=== PATIENT | female | born 1985 | race Caucasian/White ===

== ENCOUNTER 2016-12-14 07:25 | Emergency (ER) | payer SELFPAY ==
[2016-12-14] MEDS ORDERED: PROPOFOL INJ 200 MG/20 ML VIAL IV ONE (07:37)
--- NOTE | 2016-12-14 07:37 | ER Document Report ---
ED General - General Chief Complaint: Shoulder Pain Stated Complaint: RIGHT SHOULD PAIN Time Seen by Provider: 12/14/16 07:34 Mode of Arrival: Ambulatory Information source: Patient Notes: 31 yr old female hx of previous shoulder dislocations presents with r shoudler dislocation as of this morning. pt states she may have spasmed i nher sleep, was suppposed ot have surgery but has not had a dislocation in 2 yrs, admits to tingling i nthe fingers. TRAVEL OUTSIDE OF THE [place] IN LAST 30 DAYS: No - HPI Onset: Just prior to arrival Onset/Duration: Sudden Quality of pain: Achy Severity: Mild Pain Level: 2 Associated symptoms: Body/muscle aches Exacerbated by: Movement Relieved by: Denies Similar symptoms previously: Yes Recently seen / treated by doctor: Yes - Related Data Allergies/Adverse Reactions: penicillin V potassium [From Posterous] Allergy (Verified 12/14/16 07:31) unk Past Medical History - Social History Smoking Status: Never Smoker Cigarette use (# per day): No Chew tobacco use (# tins/day): No Smoking Education Provided: No Family History: Reviewed & Not Pertinent Renal/ Medical History: Denies: Hx Peritoneal Dialysis Psychiatric Medical History: Reports: Hx Depression Past Surgical History: Reports: Hx Section - x1 - Immunizations Hx Diphtheria, Pertussis, Tetanus Vaccination: Yes Review of Systems - Review of Systems Notes: REVIEW OF SYSTEMS: CONSTITUTIONAL : Denies fever, chills, or sweats. Denies recent illness. EENT: Denies eye, ear, throat, or mouth pain or symptoms. Denies nasal or sinus congestion or discharge. Denies throat, tongue, or mouth swelling or difficulty swallowing. CARDIOVASCULAR: Denies chest pain. Denies palpitations or racing or irregular heart beat. Denies ankle edema. RESPIRATORY: Denies cough, cold, or chest congestion. Denies shortness of breath, difficulty breathing, or wheezing. GASTROINTESTINAL: Denies abdominal pain or distention. Denies nausea, vomiting , or diarrhea. Denies blood in vomitus, stools, or per rectum. Denies black, tarry stools. Denies constipation. GENITOURINARY: Denies difficulty urinating, painful urination, burning, frequency, blood in urine, or discharge. FEMALE GENITOURINARY: Denies vaginal bleeding, heavy or abnormal periods, irregular periods. Denies vaginal discharge or odor. MUSCULOSKELETAL: Admits to right shoulder pain SKIN: Denies rash, lesions or sores. HEMATOLOGIC : Denies easy bruising or bleeding. LYMPHATIC: Denies swollen, enlarged glands. NEUROLOGICAL: Denies confusion or altered mental status. Denies passing out or loss of consciousness. Denies dizziness or lightheadedness. Denies headache. Denies weakness or paralysis or loss of use of either side. Denies problems with gait or speech. Denies sensory loss, numbness, or tingling. Denies seizures. PSYCHIATRIC: Denies anxiety or stress. Denies depression, suicidal ideation, or homicidal ideation. ALL OTHER SYSTEMS REVIEWED AND NEGATIVE. PHYSICAL EXAMINATION: GENERAL: Well-appearing, well-nourished and in no acute distress. HEAD: Atraumatic, normocephalic. EYES: Pupils equal round and reactive to light, extraocular movements intact, conjunctiva are normal. ENT: Nares patent, oropharynx clear without exudates. Moist mucous membranes. NECK: Normal range of motion, supple without lymphadenopathy LUNGS: Breath sounds clear to auscultation bilaterally and equal. No wheezes rales or rhonchi. HEART: Regular rate and rhythm without murmurs ABDOMEN: Soft, nontender, nondistended abdomen. No guarding, no rebound. No masses appreciated. Female : deferred Musculoskeletal: obvious anterior dislocation of the right shoulder, sensation in tact, pt has good strewnght and pulses NEUROLOGICAL: Cranial nerves grossly intact. Normal speech, normal gait. Normal sensory, motor exams PSYCH: Normal mood, normal affect. SKIN: Warm, Dry, normal turgor, no rashes or lesions noted. Dictation was performed using [employer] voice recognition software Physical Exam - Vital signs Vitals: Temp Pulse Resp BP Pulse Ox 98.3 F 56 L 16 129/87 H 95 12/14/16 07:30 12/14/16 07:30 12/14/16 07:30 12/14/16 07:30 12/14/16 07:30 Course - Re-evaluation Re-evalutation: 12/14/16 08:28 X-rays consistent with a shoulder dislocation conscious sedation will be performed at patient's request 12/14/16 08:58 Shoulder reduced with no complication After performing a Medical Screening Examination, I estimate there is LOW risk for INTRACRANIAL HEMORRHAGE, UNSTABLE SPINE FRACTURE, CENTRAL CORD SYNDROME, CAUDA EQUINA, THORACIC AORTIC DISSECTION, PNEUMOTHORAX, PERFORATED BOWEL, RUPTURED ABDOMINAL AORTIC ANEURYSM, ACUTE TENDON RUPTURE, COMPARTMENT SYNDROME, or OPEN FRACTURE, thus I consider the discharge disposition reasonable. Also, there is no evidence or peritonitis, sepsis, or toxicity. I have reevaluated this patient multiple times and no significant life threatening changes are noted. The patient and I have discussed the diagnosis and risks, and we agree with discharging home to follow-up with their primary doctor with the understanding that symptoms and presentations can change. We also discussed returning to the Emergency Department immediately if new or worsening symptoms occur. We have discussed the symptoms which are most concerning (e.g., bloody stool, fever, changing or worsening pain, vomiting) that necessitate immediate return. - Vital Signs Vital signs: Temp Pulse Resp BP Pulse Ox 98.3 F 124 H 20 129/87 H 100 12/14/16 07:30 12/14/16 08:40 12/14/16 08:40 12/14/16 07:30 12/14/16 08:40 - Diagnostic Test Radiology reviewed: Image reviewed, Reports reviewed Procedures - Conscious Sedation Conscious sedation Time started: 08:42 Time completed: 08:49 Consent obtained: Yes Indication: shoudler reduction Pt with a mild systemic disease.: P2. - ASA Classification. Airway Evaluation: Normal anatomy Mallampati Classification: Class 1 Used during procedure: Suction available, IV access obtained, Pulse ox on pt., quality assurance monitor body on pt. Medications administered: Diprivan Reversal agents: None I personally performed/intraservice time: Sedation, Procedure, 30 min or less Complications: No - Immobilization Right Shoulder Time completed: 08:51 Pre-Proc Neuro Vasc Exam: Normal Immobilizer type: Shoulder immobilizer Performed by: Provider assisted, PCT Post-Proc Neuro Vasc Exam: Normal Alignment checked and good: Yes - Joint Reduction/Fracture Care Right Shoulder Time completed: 08:49 Consent obtained: Yes Conscious sedation: Yes Pre-procedure NV exam: Yes Fracture: Closed Post-procedure NV exam: Yes Post-reduction x-ray: Joint reduced Reduction attempts: 1 Complications: No Discharge - Discharge Clinical Impression: shoulder reduction Shoulder dislocation Qualifiers: Encounter type: initial encounter Laterality: right Qualified Code(s): S43.004A - Unspecified dislocation of right shoulder joint, initial encounter Condition: Stable Disposition: HOME, SELF-CARE Instructions: Shoulder Dislocation ([facility]), Sling as Treatment ([facility]) Prescriptions: Hydrocodone/Acetaminophen [[place] 5-325 mg Tablet] 1 tab PO Q6 #10 tablet Referrals: PRISCILA VAZQUEZ DO [ACTIVE STAFF] - Follow up tomorrow
--- NOTE | 2016-12-14 07:59 | RADIOLOGY REPORT (SQ) ---
EXAM DESCRIPTION: SHOULDER RIGHT 2 OR MORE VIEWS COMPLETED DATE/TIME: 12/14/2016 7:51 am REASON FOR STUDY: hx dislocations COMPARISON: 10/29/2016. NUMBER OF VIEWS: Three views. TECHNIQUE: Internal rotation, external rotation, and Y view images acquired of the right shoulder. LIMITATIONS: None. FINDINGS: MINERALIZATION: Normal. BONES: No acute fracture or dislocation. No worrisome bone lesions. JOINTS: Anterior dislocation of the right shoulder, glenohumeral joint. VISUALIZED LUNGS AND RIBS: No pneumothorax. No rib fracture. SOFT TISSUES: No radiopaque foreign body. OTHER: No other significant finding. IMPRESSION: Right anterior shoulder dislocation. TECHNICAL DOCUMENTATION: JOB ID: [id number] [employer]- All Rights Reserved
--- NOTE | 2016-12-14 09:10 | RADIOLOGY REPORT (SQ) ---
EXAM DESCRIPTION: SHOULDER RIGHT 1 VIEW COMPLETED DATE/TIME: 12/14/2016 8:59 am REASON FOR STUDY: er 17 post reduction COMPARISON: None. NUMBER OF VIEWS: One view. TECHNIQUE: AP images acquired of the right shoulder. LIMITATIONS: None. FINDINGS: Humeral head overlies the glenoid. No fracture identified. IMPRESSION: Successful reduction. TECHNICAL DOCUMENTATION: JOB ID: [id number] [employer]- All Rights Reserved
[2016-12-14 10:06] VITALS: BP 123/82
== END 2016-12-14 10:10 | disposition home or self-care (01) ==
LOC: ER 07:25
PROC: 0RSJXZZ Reposition Right Shoulder Joint, External Approach (ICD-10-PCS; principal; 2016-12-14)
DX: S43.004A Unspecified dislocation of right shoulder joint, initial encounter (principal); M25.511 Pain in right shoulder; X58.XXXA Exposure to other specified factors, initial encounter
CPT/HCPCS: 99283; 99152; 73020; 73030; 23650; L3650; J2704

== ENCOUNTER 2017-05-22 15:37 | Emergency (ER) | payer SELFPAY ==
[2017-05-22 15:44] VITALS: BP 150/88
--- NOTE | 2017-05-22 16:05 | ER Document Report ---
ED Medical Screen (RME) - General Chief Complaint: Abdominal Pain Stated Complaint: ABDOMINAL PAIN Time Seen by Provider: 05/22/17 16:05 TRAVEL OUTSIDE OF THE [place] IN LAST 30 DAYS: No - HPI Patient complains to provider of: Abdominal pain 8/10 sharp in nature without radiation. Notes: 05/22/17 16:13 Patient with history of hepatitis C and worsening liver function presents with increasing ascites. Patient diagnosed a few months ago with hep C. Following up with [facility]. Patient had an episode of this in the past was given diuretics and diuresed a great deal of urine off. and felyt imporved. Spoke with her family doctor today and they told her to come get evaluated. - Related Data Allergies/Adverse Reactions: penicillin V potassium [From Michelle Rasmussen] Allergy (Verified 05/22/17 15:38) unk Home Medications: Current Home Medications Emtricitabine/Tenofov Alafenam [Descovy 200-25 mg Tablet] 1 tab PO DAILY [History] Propranolol HCl [Inderal Xl] 80 mg PO DAILY 05/22/17 [History] Raltegravir Potassium [Isentress Hd] 2 tab PO DAILY 05/22/17 [History] Spironolactone [Spironolactone] 2 tab PO BID 05/22/17 [History] Past Medical History - Social History Chew tobacco use (# tins/day): No Frequency of alcohol use: None Drug Abuse: None Renal/ Medical History: Denies: Hx Peritoneal Dialysis Psychiatric Medical History: Reports: Hx Depression Past Surgical History: Reports: Hx Section - x1 - Immunizations Hx Diphtheria, Pertussis, Tetanus Vaccination: Yes Review of Systems - Review of Systems Gastrointestinal: Abdomen distended, Abdominal pain Physical Exam - Vital signs Vitals: Temp Pulse Resp BP Pulse Ox 98.6 F 110 H 16 150/88 H 100 05/22/17 15:43 05/22/17 15:43 05/22/17 15:43 05/22/17 15:43 05/22/17 15:43 Course - Vital Signs Vital signs: Temp Pulse Resp BP Pulse Ox 98.6 F 110 H 16 150/88 H 100 05/22/17 15:43 05/22/17 15:43 05/22/17 15:43 05/22/17 15:43 05/22/17 15:43
[2017-05-22 16:35] LABS: ABSOLUTE LYMPHOCYTES (AUTO) 0.6 10^3/uL (0.5-4.7); ABSOLUTE MONOCYTES (AUTO) 0.4 10^3/uL (0.1-1.4); ABSOLUTE NEUT (AUTO) 3.1 10^3/uL (1.7-8.2); BASOPHILS % (AUTO) 0.6 % (0-2); EOSINOPHILS % (AUTO) 0.9 % (0-6); HEMATOCRIT 36.6 % (36.0-47.0); HEMOGLOBIN 12.4 g/dL (12.0-15.5); LYMPHOCYTES % (AUTO) 14.7 % (13-45); MEAN CORPUSCULAR HEMOGLOBIN 34.8 pg (27.0-33.4); MEAN CORPUSCULAR VOLUME 103 fl (80-97); MONOCYTES % (AUTO) 10.6 % (3-13); RED BLOOD COUNT 3.57 10^6/uL (3.72-5.28); RED CELL DISTRIBUTION WIDTH 17.3 % (11.5-14.0); SEGMENTED NEUTROPHILS % (AUTO) 73.2 % (42-78); TOTAL CELLS COUNTED % (AUTO) 100 %; WHITE BLOOD COUNT 4.2 10^3/uL (4.0-10.5)
[2017-05-22 16:39] LABS: APPEARANCE,URINE SLIGHTLY-CLOUDY; BILIRUBIN,URINE MODERATE (NEGATIVE); COLOR,URINE AMBER; GLUCOSE, URINE NEGATIVE (NEGATIVE); KETONES,URINE NEGATIVE (NEGATIVE); LEUKOCYTE ESTERASE,URINE NEGATIVE (NEGATIVE); NITRITE,URINE NEGATIVE (NEGATIVE); PROTEIN,URINE 30 mg/dL (NEGATIVE); URINE SPECIFIC GRAVITY 1.019
[2017-05-22 16:46] LABS: INTERNATIONAL RATION (INR) 1.59; PROTHROMBIN TIME 19.9 SEC (11.4-15.4)
[2017-05-22 16:47] LABS: PARTIAL THROMBOPLASTIN TIME 39.6 SEC (23.5-35.8)
[2017-05-22 16:50] LABS: PLATELET COUNT 91 10^3/uL (150-450)
[2017-05-22 17:09] LABS: ALANINE AMINOTRANSFERASE 94 U/L (9-52); ALBUMIN 2.2 g/dL (3.5-5.0); ALKALINE PHOSPHATASE 464 U/L (38-126); ANION GAP 6 (5-19); ASPARTATE AMINO TRANSFERASE 262 U/L (14-36); BILIRUBIN,DIRECT 8.9 mg/dL (0.0-0.4); BILIRUBIN,TOTAL 10.9 mg/dL (0.2-1.3); BLOOD UREA NITROGEN 7 mg/dL (7-20); CALCIUM 7.9 mg/dL (8.4-10.2); CARBON DIOXIDE 22 mmol/L (22-30); CHLORIDE 107 mmol/L (98-107); GLUCOSE 101 mg/dL (75-110); LIPASE 251.9 U/L (23-300); POTASSIUM 4.4 mmol/L (3.6-5.0); SODIUM 134.5 mmol/L (137-145); TOTAL PROTEIN 7.3 g/dL (6.3-8.2)
--- NOTE | 2017-05-22 17:22 | ER Document Report ---
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 Patient admits to shortness of breath when she lays flat. She denies any fevers or chills admits to pressure sensation in her abdomen but no significant pain TRAVEL OUTSIDE OF THE [place] IN LAST 30 DAYS: No - HPI Onset: Other - 2 week duration Onset/Duration: Persistent Quality of pain: Achy Severity: Mild Pain Level: 1 Associated symptoms: Body/muscle aches, Shortness of breath Exacerbated by: Supine Relieved by: Denies Similar symptoms previously: No Recently seen / treated by doctor: No - Related Data Allergies/Adverse Reactions: penicillin V potassium [From [employer]] Allergy (Verified 05/22/17 15:38) unk Home Medications: Current Home Medications Emtricitabine/Tenofov Alafenam [Descovy 200-25 mg Tablet] 1 tab PO DAILY [History] Propranolol HCl 80 mg PO DAILY 05/22/17 [History] Raltegravir Potassium [Isentress Hd] 1,200 mg PO DAILY 05/22/17 [History] Spironolactone [Spironolactone] 50 mg PO Q12 05/22/17 [History] Past Medical History - Social History Smoking Status: Former Smoker Cigarette use (# per day): No Chew tobacco use (# tins/day): No Smoking Education Provided: No Frequency of alcohol use: None Drug Abuse: None Family History: Reviewed & Not Pertinent Patient has suicidal ideation: No Patient has homicidal ideation: No Renal/ Medical History: Denies: Hx Peritoneal Dialysis Psychiatric Medical History: Reports: Hx Depression Past Surgical History: Reports: Hx Section - x1 - Immunizations Hx Diphtheria, Pertussis, Tetanus Vaccination: Yes Review of Systems - Review of Systems Notes: REVIEW OF SYSTEMS: CONSTITUTIONAL : Denies fever, chills, or sweats. Denies recent illness. EENT: Denies eye, ear, throat, or mouth pain or symptoms. Denies nasal or sinus congestion or discharge. Denies throat, tongue, or mouth swelling or difficulty swallowing. CARDIOVASCULAR: Denies chest pain. Denies palpitations or racing or irregular heart beat. Denies ankle edema. RESPIRATORY: Admits to shortness of breath GASTROINTESTINAL: Admits to abdominal pain distention GENITOURINARY: Denies difficulty urinating, painful urination, burning, frequency, blood in urine, or discharge. FEMALE GENITOURINARY: Denies vaginal bleeding, heavy or abnormal periods, irregular periods. Denies vaginal discharge or odor. MUSCULOSKELETAL: Denies back or neck pain or stiffness. Denies joint pain or swelling. SKIN: Denies rash, lesions or sores. HEMATOLOGIC : Denies easy bruising or bleeding. LYMPHATIC: Denies swollen, enlarged glands. NEUROLOGICAL: Denies confusion or altered mental status. Denies passing out or loss of consciousness. Denies dizziness or lightheadedness. Denies headache. Denies weakness or paralysis or loss of use of either side. Denies problems with gait or speech. Denies sensory loss, numbness, or tingling. Denies seizures. PSYCHIATRIC: Denies anxiety or stress. Denies depression, suicidal ideation, or homicidal ideation. ALL OTHER SYSTEMS REVIEWED AND NEGATIVE. PHYSICAL EXAMINATION: GENERAL: Well-appearing, well-nourished and in no acute distress. HEAD: Atraumatic, normocephalic. EYES: Pupils equal round and reactive to light, extraocular movements intact, conjunctiva are normal. ENT: Nares patent, oropharynx clear without exudates. Moist mucous membranes. NECK: Normal range of motion, supple without lymphadenopathy LUNGS: Breath sounds clear to auscultation bilaterally and equal. No wheezes rales or rhonchi. HEART: Regular rate and rhythm without murmurs ABDOMEN: Distended abdomen with fluid wave noted Female : deferred Musculoskeletal: Normal range of motion, no pitting or edema. No cyanosis. NEUROLOGICAL: Cranial nerves grossly intact. Normal speech, normal gait. Normal sensory, motor exams PSYCH: Normal mood, normal affect. SKIN: Warm, Dry, normal turgor, no rashes or lesions noted. Dictation was performed using [employer] voice recognition software Physical Exam - Vital signs Vitals: Temp Pulse Resp BP Pulse Ox 98.6 F 110 H 16 150/88 H 100 05/22/17 15:43 05/22/17 15:43 05/22/17 15:43 05/22/17 15:43 05/22/17 15:43 Course - Re-evaluation Re-evalutation: 05/22/17 17:[address] Jacinto Infectious disease, she requests paracentesis. States patient did very well on aldactone, but this failed, requests lasix upon discharge she does not request any special labs 05/22/17 18:49 Ultrasound was performed moderate amount of ascites was noted as well as large, I did speak with the patient in length as well as the radiologist on-call, unfortunately due to inclement weather we are unable to get the radiologist here to perform the procedure, the surgeon is willing to perform the procedure however patient would prefer to wait for interventional radiology to do the procedure itself. Therefore I will have her follow-up tomorrow as this is not emergent at this time patient will be given Lasix here and follow with infectious disease once the paracentesis has been performed After performing a Medical Screening Examination, I estimate there is LOW risk for ACUTE APPENDICITIS, BOWEL OBSTRUCTION, ACUTE CHOLECYSTITIS, PERFORATED DIVERTICULITIS, INCARCERATED HERNIA, PANCREATITIS, PELVIC INFLAMMATORY DISEASE, PERFORATED ULCER, ECTOPIC , or TUBO-OVARIAN ABSCESS, thus I consider the discharge disposition reasonable. Also, there is no evidence or peritonitis , sepsis, or toxicity. I have reevaluated this patient multiple times and no significant life threatening changes are noted. The patient and I have discussed the diagnosis and risks, and we agree with discharging home with close follow-up with the understanding that symptoms and presentations can change. We also discussed returning to the Emergency Department immediately if new or worsening symptoms occur. We have discussed the symptoms which are most concerning (e.g., bloody stool, fever, changing or worsening pain, vomiting) that necessitate immediate return. - Vital Signs Vital signs: Temp Pulse Resp BP Pulse Ox 98.6 F 110 H 16 150/88 H 100 05/22/17 15:43 05/22/17 15:43 05/22/17 15:43 05/22/17 15:43 05/22/17 15:43 - Laboratory Result Diagrams: 05/22/17 16:20 05/22/17 16:20 Laboratory results interpreted by me: 05/22/17 05/22/17 05/22/17 16:20 16:20 16:20 RBC 3.57 L MCV 103 H MCH 34.8 H RDW 17.3 H Plt Count 91 L PT 19.9 H APTT 39.6 H Sodium 134.5 L Calcium 7.9 L Total Bilirubin 10.9 H Direct Bilirubin 8.9 H AST 262 H ALT 94 H Alkaline Phosphatase 464 H Albumin 2.2 L Urine Protein Urine Blood Urine Bilirubin Urine Urobilinogen 05/22/17 16:24 RBC MCV MCH RDW Plt Count PT APTT Sodium Calcium Total Bilirubin Direct Bilirubin AST ALT Alkaline Phosphatase Albumin Urine Protein 30 H Urine Blood MODERATE H Urine Bilirubin MODERATE H Urine Urobilinogen 4.0 H - Diagnostic Test Radiology reviewed: Image reviewed, Reports reviewed Discharge - Discharge Clinical Impression: Ascites Qualifiers: Ascites type: other type Qualified Code(s): R18.8 - Other ascites Condition: Stable Disposition: HOME, SELF-CARE Additional Instructions: We will set a time for your paracentesis tomorrow, return for this procedure. Return immediately if there are any other concerns Prescriptions: Furosemide [Lasix 40 mg Tablet] 40 mg PO QAM #14 tablet Forms: Follow-Up Radiology Testing
[2017-05-22] MEDS ORDERED: FUROSEMIDE 40 MG TABLET PO ONE (18:41)
--- NOTE | 2017-05-22 18:48 | RADIOLOGY REPORT (SQ) ---
EXAM DESCRIPTION: U/S ABDOMEN COMPLETE W/O DOP COMPLETED DATE/TIME: 05/22/2017 6:36 pm REASON FOR STUDY: liver failure COMPARISON: None. TECHNIQUE: Dynamic and static grayscale images acquired of the abdomen and recorded on PACS. Additio nal selected color Doppler and spectral images recorded. LIMITATIONS: None. FINDINGS: PANCREAS: Not visualized. LIVER: Nodular contour with heterogenous echotexture. No focal lesions. No biliary dilation. LIVER VASCULATURE: Normal directional flow of the main portal vein and hepatic veins. GALLBLADDER: Not visualized. ULTRASOUND-DETECTED AHUMADA'S SIGN: Negative. INTRAHEPATIC DUCTS AND COMMON DUCT: CBD and intrahepatic ducts normal caliber. No filling defects. INFERIOR VENA CAVA: Normal flow. AORTA: Not visualized. RIGHT KIDNEY: Normal size. Normal echogenicity. No solid or suspicious masses. No hydronephros is. No calcifications. PERITONEAL AND PLEURAL SPACES: Moderate ascites. OTHER: No other significant finding. IMPRESSION: 1. NODULAR CONTOUR OF THE LIVER WITH HETEROGENOUS ECHOTEXTURE CONSISTENT WITH CHRONIC LIVER DISEASE/C IRRHOSIS. NO FOCAL LESIONS. 2. MODERATE ASCITES. TECHNICAL DOCUMENTATION: JOB ID: [id number] [employer]- All Rights Reserved
== END 2017-05-22 19:04 | disposition home or self-care (01) ==
LOC: ER 15:37
DX: R18.8 Other ascites (principal); R06.02 Shortness of breath; R10.9 Unspecified abdominal pain; Z88.0 Allergy status to penicillin; Z87.891 Personal history of nicotine dependence; Z21 Asymptomatic human immunodeficiency virus [HIV] infection status
CPT/HCPCS: 36415; 76700; 80053; 81001; 83605; 83690; 85025; 85610; 85730; 99284

== ENCOUNTER 2017-05-23 11:32 | Day surgery (SDC) | payer SELFPAY ==
[2017-05-23] MEDS ORDERED: LIDOCAINE 1% INJ-PF (10 MG/ML) 30 ML SDV ONE (12:06)
[2017-05-23 14:06] VITALS: BP 125/74
--- NOTE | 2017-05-26 08:59 | RADIOLOGY REPORT (SQ) ---
EXAM DESCRIPTION: U/S ABD PARACENTESIS COMPLETED DATE/TIME: 05/23/2017 1:11 pm REASON FOR STUDY: ASCITES COMPARISON None. LIMITATIONS: None. PROCEDURE: After obtaining informed consent, the patient was brought to the ultrasound suite. The p rocedure was performed with the patient on a gurney. Ultrasound was used to identify a prominent poc ket of ascites in the right lower quadrant. An appropriate access site was selected. The patient wa s prepped and draped in usual sterile fashion. The access site was anesthetized with 7 mL 1% lidoca ine. A [id number] needle was advanced into the fluid. After aspiration of fluid the needle, th e catheter was advanced off the needle into the fluid. A total of 7 mL of clear straw-colored fluid was removed. The patient tolerated the procedure well left the department in satisfactory condition. No testing on the fluid was performed. IMPRESSION: Successful ultrasound-guided paracentesis COMMENT: Patient medication list reviewed: Yes- Quality ID# [id number]:Eligible professional attests to doc umenting in the medical record they obtained, updated, or reviewed the patient's current medications. Quality ID #[id number]: The patient was prepped and draped using maximum sterile barrier technique including cap, mask, sterile gown, sterile gloves, a large sterile sheet, hand hygiene, and 2% Chlorhexidine fo r cutaneous antisepsis. When ultrasound is used, sterile ultrasound techniques are followed requiring sterile gel and sterile probes. Quality ID #[id number]: Final reports for procedures using fluoroscopy that document radiation exposure ev renuka, or exposure time and number of fluorographic images (if radiation exposure indices are not avail able) TECHNICAL DOCUMENTATION: JOB ID: [id number] [employer]- All Rights Reserved
== END 2017-05-23 14:00 | disposition home or self-care (01) ==
LOC: RAD 11:32
PROVIDERS: ATTEND Emergency Medicine
PROC: 0W9G3ZZ Drainage of Peritoneal Cavity, Percutaneous Approach (ICD-10-PCS; principal; 2017-05-23)
DX: R18.8 Other ascites (principal); R06.02 Shortness of breath; Z87.891 Personal history of nicotine dependence; Z79.899 Other long term (current) drug therapy
CPT/HCPCS: 49083; J3490

== ENCOUNTER 2017-10-22 18:40 | Emergency (ER) | payer SELFPAY ==
[2017-10-22] MEDS ORDERED: NORMAL SALINE 1000 ML 1,000 ML IV ONE (20:17)
[2017-10-22 20:59] LABS: APPEARANCE,URINE SLIGHTLY-CLOUDY; BILIRUBIN,URINE MODERATE (NEGATIVE); COLOR,URINE AMBER; GLUCOSE, URINE NEGATIVE (NEGATIVE); KETONES,URINE NEGATIVE (NEGATIVE); LEUKOCYTE ESTERASE,URINE NEGATIVE (NEGATIVE); NITRITE,URINE NEGATIVE (NEGATIVE); PROTEIN,URINE NEGATIVE (NEGATIVE); URINE SPECIFIC GRAVITY 1.025
[2017-10-22 20:59] LABS: ABSOLUTE EOSINOPHILS # (AUTO) 0.1 10^3/uL (0.0-0.6); ABSOLUTE LYMPHOCYTES (AUTO) 0.9 10^3/uL (0.5-4.7); ABSOLUTE MONOCYTES (AUTO) 0.6 10^3/uL (0.1-1.4); EOSINOPHILS % (AUTO) 1.2 % (0-6); HEMATOCRIT 36.8 % (36.0-47.0); HEMOGLOBIN 12.8 g/dL (12.0-15.5); LYMPHOCYTES % (AUTO) 19.8 % (13-45); MEAN CORPUSCULAR HEMOGLOBIN 34.3 pg (27.0-33.4); MEAN CORPUSCULAR HGB CONC 34.9 g/dL (32.0-36.0); MEAN CORPUSCULAR VOLUME 98 fl (80-97); RED BLOOD COUNT 3.75 10^6/uL (3.72-5.28); RED CELL DISTRIBUTION WIDTH 18.8 % (11.5-14.0); TOTAL CELLS COUNTED % (AUTO) 100 %; WHITE BLOOD COUNT 4.6 10^3/uL (4.0-10.5)
[2017-10-22 21:00] LABS: ALANINE AMINOTRANSFERASE 128 U/L (9-52); ALBUMIN 2.6 g/dL (3.5-5.0); ALKALINE PHOSPHATASE 413 U/L (38-126); ANION GAP 8 (5-19); ASPARTATE AMINO TRANSFERASE 290 U/L (14-36); BILIRUBIN,DIRECT 7.3 mg/dL (0.0-0.4); BILIRUBIN,TOTAL 9.7 mg/dL (0.2-1.3); BLOOD UREA NITROGEN 12 mg/dL (7-20); CALCIUM 8.5 mg/dL (8.4-10.2); CARBON DIOXIDE 23 mmol/L (22-30); CHLORIDE 103 mmol/L (98-107); GLUCOSE 91 mg/dL (75-110); LIPASE 357.3 U/L (23-300); POTASSIUM 4.7 mmol/L (3.6-5.0); SODIUM 133.6 mmol/L (137-145); TOTAL PROTEIN 8.8 g/dL (6.3-8.2)
[2017-10-22 21:30] LABS: PLATELET COUNT 101 10^3/uL (150-450)
[2017-10-22] MEDS ORDERED: 1/2 NORMAL SALINE 1,000 ML IV ONE (21:34)
[2017-10-22] MEDS ORDERED: DICYCLOMINE HCL 20 MG TABLET PO ONE (21:35)
--- NOTE | 2017-10-22 21:37 | ER Document Report ---
ED GI/ - General Mode of Arrival: Ambulatory Information source: Patient TRAVEL OUTSIDE OF THE [place] IN LAST 30 DAYS: No <LESLY FOSTER - Last Filed: 10/23/17 02:49> <ERNESTO BARCLAY - Last Filed: 10/23/17 03:28> - General Chief Complaint: Abdominal Pain Stated Complaint: ABDOMINAL PAIN Time Seen by Provider: 10/22/17 20:10 Notes: Patient is a 32-year-old female with hepatits C, HIV, stage 4 liver failure ascities presents to the emergency department complaining of abdominal pain onset last night. Patient describes the pain as sharp and constant, like someone stabbing her with a knife in the periumbilical area. Patient's associated symptoms include back pain, nausea and diaphoresis. Patient denies vomiting, diarrhea or history of abdominal surgery. Patient states she takes lactulose 2x daily and states her last BM was today which she describes was normal. Patient reports frequently getting her abdominal tapped due to ascities. states they recently cut out all sodium in the patients diet and feels the patient has not been drinking enough fluids. (LESLY FOSTER) - Related Data Allergies/Adverse Reactions: penicillin V potassium [From Pen-Vee K] Allergy (Verified 10/22/17 18:43) unk Past Medical History - General Information source: Patient - Social History Smoking Status: Unknown if Ever Smoked Family History: Reviewed & Not Pertinent Patient has suicidal ideation: No Patient has homicidal ideation: No GI Medical History: Reports: Hx Liver Failure, Hx Endoscopy Psychiatric Medical History: Reports: Hx Depression Infectious Medical History: Reports: Hx Hepatitis, Hx HIV Past Surgical History: Reports: Hx Section - x1 - Immunizations Hx Diphtheria, Pertussis, Tetanus Vaccination: Yes <LESLY FOSTER - Last Filed: 10/23/17 02:49> Review of Systems - Review of Systems Constitutional: See HPI, Diaphoresis EENT: No symptoms reported Cardiovascular: No symptoms reported Respiratory: No symptoms reported Gastrointestinal: See HPI, Abdominal pain, Nausea Genitourinary: No symptoms reported Female Genitourinary: No symptoms reported Musculoskeletal: No symptoms reported Skin: No symptoms reported Hematologic/Lymphatic: No symptoms reported Neurological/Psychological: No symptoms reported -: Yes All other systems reviewed and negative <LESLY FOSTER - Last Filed: 10/23/17 02:49> Physical Exam - Vital signs Interpretation: Tachycardic - General General appearance: Other - Appears uncomfortable In distress: None - Respiratory Respiratory status: No respiratory distress Chest status: Nontender Breath sounds: Normal Chest palpation: Normal - Cardiovascular Rhythm: Regular Heart sounds: Normal auscultation Murmur: No - Abdominal Inspection: Normal Distension: Distended Tenderness: Other - Mild tenderness to palpation in periumbilical region that is reproducible. No: Guarding, Rebound - Extremities General upper extremity: Normal inspection, Normal ROM General lower extremity: Normal inspection, Normal ROM, Normal weight bearing - Neurological Neuro grossly intact: Yes Cognition: Normal Orientation: AAOx4 Remy Coma Scale Eye Opening: Spontaneous Remy Coma Scale Verbal: Oriented Delaplane Coma Scale Motor: Obeys Commands Remy Coma Scale Total: 15 Speech: Normal Motor strength normal: LUE, RUE, LLE, RLE Sensory: Normal - Psychological Associated symptoms: Normal affect, Normal mood - Skin Skin Temperature: Warm Skin Moisture: Dry Skin Color: Jaundiced <ERNESTO BARCLAY - Last Filed: 10/23/17 03:28> - Vital signs Vitals: Temp Pulse Resp BP Pulse Ox 99.2 F 109 H 18 127/86 H 99 10/22/17 18:48 10/22/17 18:48 10/22/17 18:48 10/22/17 18:48 10/22/17 18:48 Course - Laboratory Result Diagrams: 10/22/17 20:36 10/22/17 20:36 <LESLY FOSTER - Last Filed: 10/23/17 02:49> - Laboratory Result Diagrams: 10/22/17 20:36 10/22/17 20:36 - Diagnostic Test Radiology reviewed: Reports reviewed <ERNESTO BARCLAY - Last Filed: 10/23/17 03:28> - Re-evaluation Re-evalutation: 10/22/17 23:15 Patient rechecked. She states taking magnesium citrate earlier today and noticed abdominal pain starting after taking the magnesium citrate. (LESLY FOSTER) Patient is a 32-year-old female with history of liver disease and hepatitis who comes in complaining of abdominal pain. Patient is at her usual distention. She has some mild periumbilical tenderness to palpation. No peritoneal signs. Blood work within normal limits for this patient. No evidence for peritonitis. Tachycardia improved with fluids and the patient remained afebrile. CT showing ascites and also large stool burden. Patient was given a Fleet enema with good results. Patient noted that her pain began after she took magnesium citrate for constipation today. It is recommended that the patient does not take this anymore. She is given medications for nausea and pain and had complete resolution of her symptoms at the time of discharge. She is to follow- up with her doctor and to avoid taking magnesium citrate in the future. Understands and agrees with plan. Stable for discharge. Return if any worsening or concerning symptoms. (ERNESTO BARCLAY) - Vital Signs Vital signs: Temp Pulse Resp BP Pulse Ox 98.1 F 89 17 122/80 98 10/23/17 02:02 10/23/17 02:02 10/23/17 02:02 10/23/17 02:02 10/23/17 02:02 - Laboratory Laboratory results interpreted by me: 10/22/17 10/22/17 10/22/17 20:36 20:36 20:40 MCV 98 H MCH 34.3 H RDW 18.8 H Plt Count 101 L Sodium 133.6 L Total Bilirubin 9.7 H Direct Bilirubin 7.3 H AST 290 H ALT 128 H Alkaline Phosphatase 413 H Total Protein 8.8 H Albumin 2.6 L Lipase 357.3 H Urine Bilirubin MODERATE H Urine Urobilinogen 4.0 H Urine Ascorbic Acid 40 H Discharge <LESLY FOSTER - Last Filed: 10/23/17 02:49> <ERNESTO BARCLAY - Last Filed: 10/23/17 03:28> - Discharge Clinical Impression: Abdominal pain Qualifiers: Abdominal location: periumbilical Qualified Code(s): R10.33 - Periumbilical pain Ascites Qualifiers: Ascites type: other type Qualified Code(s): R18.8 - Other ascites Constipation Qualifiers: Constipation type: unspecified constipation type Qualified Code(s): K59.00 - Constipation, unspecified Condition: Stable Disposition: HOME, SELF-CARE Instructions: Abdominal Pain ([facility]), Constipation ([facility]) Additional Instructions: Please do not use magnesium citrate as it can cause abdominal pain. Prescriptions: Dicyclomine HCl [Bentyl 20 mg Tablet] 20 mg PO QID #40 tablet Na Phos,M-B/Na Phos,Di-Ba [Fleet Enema (Adult) 133 ml] 1 applic OK DAILYP PRN # 1 enema PRN Reason: Polyethylene Glycol 3350 [Miralax Powder 17 gm/Packet] 1 cap PO DAILY #1 bottle Referrals: BHUMI GIBSON DO [Primary Care Provider] - Follow up as needed Scribe Attestation: 10/23/17 03:28 I personally performed the services described in the documentation, reviewed and edited the documentation which was dictated to the scribe in my presence, and it accurately records my words and actions. (ERNESTO BARCLAY) Scribe Documentation - Scribe Written by Cheli:: Cheli Levy, 10/22/2017 21:42 acting as scribe for :: Bria <LESLY FOSTER - Last Filed: 10/23/17 02:49>
--- NOTE | 2017-10-22 22:05 | RADIOLOGY REPORT (SQ) ---
EXAM DESCRIPTION: CT ABD/PELVIS NO ORAL OR IV COMPLETED DATE/TIME: 10/22/2017 9:43 pm REASON FOR STUDY: Abd pain, concern for hernia COMPARISON: 05/22/2017 ultrasound TECHNIQUE: CT scan of the abdomen and pelvis performed without intravenous or oral contrast. Images reviewed with lung, soft tissue, and bone windows. Reconstructed coronal and sagittal MPR images revi ewed. All images stored on PACS. All CT scanners at this facility use dose modulation, iterative reconstruction, and/or weight based d osing when appropriate to reduce radiation dose to as low as reasonably achievable (ALARA). [facility]: Dose Right [facility]: CareDose [facility]: Dose Right [facility]: Teradose 4D [facility]: Smart [employer] RADIATION DOSE: CT Rad equipment meets quality standard of care and radiation dose reduction techniq ues were employed. CTDIvol: 6.1 mGy. DLP: 321 mGy-cm.mGy. LIMITATIONS: None. FINDINGS: LOWER CHEST: No significant findings. No nodules or infiltrates. NON-CONTRASTED LIVER, SPLEEN, ADRENALS: Nodular contour of the liver. Marked splenomegaly. Evaluati on limited by lack of IV contrast. No identified significant masses. PANCREAS: No masses identified. GALLBLADDER: No identified stones by CT criteria. No inflammatory changes to suggest cholecystitis. RIGHT KIDNEY AND URETER: No suspicious masses. Assessment limited by lack of IV contrast. No signif icant calcifications. No hydronephrosis or hydroureter. LEFT KIDNEY AND URETER: No suspicious masses. Assessment limited by lack of IV contrast. No signifi cant calcifications. No hydronephrosis or hydroureter. AORTA AND RETROPERITONEUM: Diffuse portal venous varices. No aneurysm. No retroperitoneal masses or adenopathy. BOWEL AND PERITONEAL CAVITY: Large amount of ascites. Nonobstructive bowel gas pattern. Dense mater ial in the distal jejunum -proximal ileum. APPENDIX: Normal. PELVIS, BLADDER, AND ABDOMINAL WALL:Large amount of free fluid. Bladder normal. BONES: No acute findings. OTHER: No other significant finding. IMPRESSION: Large amount of ascites. Diffuse portal venous varices. Nodular contour of the liver. Marked splenomegaly. Nonobstructive bowel gas pattern. Dense material in the distal jejunum -proxi mal ileum. COMMENT: Quality ID # [id number]: Final reports with documentation of one or more dose reduction techniques (e.g., Automated exposure control, adjustment of the mA and/or kV according to patient size, use of iterative reconstruction technique) TECHNICAL DOCUMENTATION: JOB ID: [id number] [place]-72 2010 [employer]- All Rights Reserved Reading location - IP/workstation name: [employer]
[2017-10-22] MEDS ORDERED: SUCRALFATE 1 GM TABLET PO ONE (23:15)
[2017-10-22] MEDS ORDERED: NA PHOS,M-B/NA PHOS,DI-BA (ADULT) 133 ML ENEMA PR ONE (23:15)
[2017-10-23] MEDS ORDERED: KETOROLAC TROMETHAMINE INJ/PF 30 MG/1 ML SDV IV ONE (00:34)
[2017-10-23] MEDS ORDERED: PANTOPRAZOLE SODIUM 40 MG VIAL IV ONE (00:58)
[2017-10-23] MEDS ORDERED: FENTANYL CITRATE INJ/PF 100 MCG/2 ML AMPUL IV ONE (00:58)
[2017-10-23] MEDS ORDERED: METOCLOPRAMIDE HCL INJ/PF 10 MG/2 ML SDV IV ONE (00:58)
[2017-10-23 02:03] VITALS: BP 122/80
== END 2017-10-23 02:04 | disposition home or self-care (01) ==
LOC: ER 18:40
DX: R61 Generalized hyperhidrosis (principal); R10.33 Periumbilical pain; K59.00 Constipation, unspecified; R18.8 Other ascites; B20 Human immunodeficiency virus [HIV] disease; Z88.0 Allergy status to penicillin; Z86.19 Personal history of other infectious and parasitic diseases
CPT/HCPCS: 99284; 96361; 96374; 96375; 36415; 84702; 83690; 85025; 80053; 81001; 74176; J3490 ×2; J3010; J1885; J2765; S0164